=== PATIENT | female | born 1945 | race Caucasian/White ===

== ENCOUNTER 2016-07-01 15:16 | Outpatient (CLI) | payer MEDICARE ==
[2016-07-01 16:07] LABS: #Basophils 0.2 thou/uL (0.0-0.2); #Eosinphils 0.4 thou/uL (0.0-0.7); #Lymphocytes 3.6 thou/uL (1.20-3.40); #Monocytes 0.8 thou/uL (0.11-0.59); #Neutrophils 5.9 thou/uL (1.40-6.50); %Basophils 1.6 % (0.0-1.0); %Eosinophils 3.3 % (0.0-10.0); %Lymphocytes 33.2 % (21.0-51.0); %Monocytes 7.4 % (0.0-10.0); Hematocrit 36.8 % (36.0-47.0); Mean Platelet Volume 8.1 fL (7.4-10.4); Red Blood Cell (RBC) Count 4.25 mill/uL (4.20-5.40); White Blood Cell (WBC) Count 10.9 thou/uL (4.8-10.8)
[2016-07-01 16:16] LABS: Anion Gap 18 mmol/L (10-20); BUN (Urea Nitrogen) 10 mg/dL (9.8-20.1); Calc. Creatinine Clearance 0 mL/min (70-130); Calcium 9.6 mg/dL (7.8-10.44); Carbon Dioxide 25 mmol/L (23-31); Chloride 93 mmol/L (98-107); Estimated GFR-MDRD 59
== END 2016-07-01 15:17 | disposition home or self-care (01) ==
LOC: NAVSJIPCSP 15:16
PROVIDERS: ATTEND Internal Medicine
DX: D64.9 Anemia, unspecified (principal)
CPT/HCPCS: 80048; 85025

== ENCOUNTER 2017-02-11 08:38 | Outpatient (CLI) | payer MEDICARE ==
[2017-02-11 11:26] LABS: #Basophils 0.2 thou/uL (0.0-0.2); #Eosinphils 0.5 thou/uL (0.0-0.7); #Lymphocytes 3.5 thou/uL (1.20-3.40); #Monocytes 0.6 thou/uL (0.11-0.59); #Neutrophils 3.6 thou/uL (1.40-6.50); %Basophils 1.8 % (0.0-1.0); %Eosinophils 5.5 % (0.0-10.0); %Lymphocytes 41.6 % (21.0-51.0); %Monocytes 7.6 % (0.0-10.0); %Neutrophils 43.4 % (42.0-75.0); Hemoglobin 11.1 g/dL (12.0-16.0); Mean Corpuscular HGB CONC 32.2 g/dL (32.0-36.0); Mean Corpuscular Hemoglobin 27.4 pg (27.0-31.0); Mean Corpuscular Volume 85.2 fl (81.0-99.0); Mean Platelet Volume 7.4 fL (7.4-10.4); Platelet Count 266 thou/uL (130-400); RBC Distribution Width 13.6 % (11.5-14.5); Red Blood Cell (RBC) Count 4.05 mill/uL (4.20-5.40); White Blood Cell (WBC) Count 8.3 thou/uL (4.8-10.8)
[2017-02-11 11:46] LABS: ALT (SGPT) 14 U/L (8-55); AST (SGOT) 15 U/L (5-34); Alkaline Phosphatase 83 U/L (40-150); Anion Gap 13 mmol/L (10-20); BUN (Urea Nitrogen) 11 mg/dL (9.8-20.1); Bilirubin, Total 0.7 mg/dL (0.2-1.2); Calc. Creatinine Clearance 0 mL/min (70-130); Calcium 9.9 mg/dL (7.8-10.44); Carbon Dioxide 29 mmol/L (23-31); Cardiac Risk 2.9 (Less than 4.5); Chloride 97 mmol/L (98-107); Cholesterol 165 mg/dl (< 200 Desired); Estimated GFR-MDRD 66; Globulin 2.9 g/dL (2.4-3.5); Glucose 96 mg/dL (83-110); HDL Cholesterol 57 mg/dL (>60 Neg Risk); LDL Cholesterol, Calculated 83 mg/dL; Potassium 4.3 mmol/L (3.5-5.1); Protein, Total 6.9 g/dL (6.0-8.3); Sodium 135 mmol/L (136-145); Triglycerides 124 mg/dL (Less than 150)
[2017-02-11 11:50] LABS: Hemoglobin A1c 5.3 % (4.0-6.0)
[2017-02-11 17:37] LABS: Creatinine, Urine 45.41 mg/dL (47-110); Microalbumin Urine Less than 1.0 mg/dL (0.5-50.0)
== END 2017-02-11 08:39 | disposition home or self-care (01) ==
LOC: NAVSJIPCSP 08:38
PROVIDERS: ATTEND Internal Medicine
DX: E11.9 Type 2 diabetes mellitus without complications (principal); I10 Essential (primary) hypertension
CPT/HCPCS: 36415; 80053; 80061; 82043; 83036; 85025

== ENCOUNTER 2018-11-06 10:04 | Outpatient (CLI) | payer MEDICARE ==
--- NOTE | 2018-11-06 11:50 | CT ---
CT FACIAL BONES WITHOUT IV CONTRAST: HISTORY: Acute frontal sinusitis. Pain in cheeks. FINDINGS: There is prominent left-sided nasal septal deviation with a nasal septal spur. There are right conch a bullosa changes. Bilateral Twyla's cells are noted. Probable very small left frontal sinus osteo ma. No evidence for a significant nasal bone fracture. No air-fluid level within the sinuses. No s ignificant sinus mucosal disease. IMPRESSION: 1. No evidence for acute sinusitis or significant acute sinus mucosal disease. 2. Left-sided nasal septal deviation with prominent right-sided no bullosa. 3. Prominent bilateral Twyla's cells. 4. 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 POS: [facility]
== END 2018-11-06 10:05 | disposition home or self-care (01) ==
LOC: NAV CT 10:04
DX: J01.10 Acute frontal sinusitis, unspecified (principal); J34.2 Deviated nasal septum; D16.4 Benign neoplasm of bones of skull and face; J34.89 Other specified disorders of nose and nasal sinuses
CPT/HCPCS: 70486

== ENCOUNTER 2019-08-12 08:03 | Emergency (ER) | payer MEDICARE ==
--- NOTE | 2019-08-12 08:48 | RAD ---
EXAM: 3 views of the right fourth finger finger HISTORY: Finger pain COMPARISON: None FINDINGS: Small ossific fragments are seen along the dorsal aspect of the PIP joint. These could repr esent small avulsion fragments. Mild soft tissue swelling is seen. No degenerative changes are present. No radiopaque foreign body is seen. IMPRESSION: Possible small avulsion fracture fragments along the dorsal aspect of the PIP joint.
== END 2019-08-12 09:12 | disposition home or self-care (01) ==
LOC: NAV ERS 08:03
DX: S62.614A Displaced fracture of proximal phalanx of right ring finger, initial encounter for closed fracture (principal); E11.9 Type 2 diabetes mellitus without complications; E78.5 Hyperlipidemia, unspecified; M19.90 Unspecified osteoarthritis, unspecified site; Z79.84 Long term (current) use of oral hypoglycemic drugs; Z79.899 Other long term (current) drug therapy; Z79.82 Long term (current) use of aspirin; W18.09XA Striking against other object with subsequent fall, initial encounter
CPT/HCPCS: Q4049

== ENCOUNTER 2020-09-02 11:02 | Outpatient (CLI) | payer MEDICARE ==
[2020-09-02 17:41] LABS: ALT (SGPT) 29 U/L (8-55); AST (SGOT) 17 U/L (5-34); Albumin 3.8 g/dL (3.4-4.8); Alkaline Phosphatase 71 U/L (40-110); Anion Gap 14 mmol/L (10-20); BUN (Urea Nitrogen) 15 mg/dL (9.8-20.1); Bilirubin, Direct 0.3 mg/dL (0.1-0.3); Bilirubin, Total 0.5 mg/dL (0.2-1.2); Calc. Creatinine Clearance 0 mL/min (70-130); Calcium 9.3 mg/dL (7.8-10.44); Carbon Dioxide 27 mmol/L (23-31); Chloride 102 mmol/L (98-107); Globulin 2.8 g/dL (2.4-3.5); Glucose 85 mg/dL (83-110); LDH 178 U/L (125-220); Phosphorus 3.2 mg/dL (2.3-4.7); Potassium 4.5 mmol/L (3.5-5.1); Protein, Total 6.6 g/dL (5.8-8.1); Sodium 138 mmol/L (136-145); Uric Acid 4.8 mg/dL (2.6-6.0)
== END 2020-09-02 11:03 | disposition home or self-care (01) ==
LOC: NAV LAB 11:02
PROVIDERS: ATTEND Internal Medicine Hematology & Oncology
DX: M85.80 Other specified disorders of bone density and structure, unspecified site (principal); C50.511 Malignant neoplasm of lower-outer quadrant of right female breast
CPT/HCPCS: 36415; 80053; 82248; 83615; 84100; 84550

== ENCOUNTER 2021-06-01 08:33 | Emergency (ER) | payer MEDICARE ==
[2021-06-01] MEDS ORDERED: Ketorolac Tromethamine 30 MG/ML VIAL ONE (09:09)
== END 2021-06-01 10:12 | disposition home or self-care (01) ==
LOC: NAV ERS 08:33
DX: M25.451 Effusion, right hip (principal); E11.9 Type 2 diabetes mellitus without complications; E78.5 Hyperlipidemia, unspecified; I10 Essential (primary) hypertension; E78.00 Pure hypercholesterolemia, unspecified; M19.90 Unspecified osteoarthritis, unspecified site; Z85.3 Personal history of malignant neoplasm of breast; Z79.82 Long term (current) use of aspirin; Z79.899 Other long term (current) drug therapy; Z79.84 Long term (current) use of oral hypoglycemic drugs
CPT/HCPCS: 96372; J1885

== ENCOUNTER 2022-01-15 14:57 | Inpatient (IN) | payer MEDICARE ==
[2022-01-15] MEDS ORDERED: Meloxicam 7.5 MG TAB PO PRN (21:02)
[2022-01-15] MEDS ORDERED: Dextrose 50% Abboject 50 ML SYRINGE SLOW IVP PRN (21:04)
[2022-01-15] MEDS ORDERED: Sodium Chloride 0.65% Nasal 44 ML BOT EA NARE PRN (21:04)
[2022-01-15] MEDS ORDERED: HumaLOG 300 UNITS/3 ML VIAL SC PRN (21:04)
[2022-01-15] MEDS ORDERED: HYDROcodone/Acetaminophen 5/325 mg Tablet PO PRN ×2 (21:04)
[2022-01-15] MEDS ORDERED: Guaifenesin DM 100-10/5 ML UDCUP PO PRN (21:04)
[2022-01-15] MEDS ORDERED: Bisacodyl 10 MG SUPP PR PRN (21:04)
[2022-01-15] MEDS ORDERED: Benzonatate 100 MG CAP PO PRN (21:04)
[2022-01-15] MEDS ORDERED: Bisacodyl 5 MG TAB PO PRN (21:04)
[2022-01-15] MEDS ORDERED: Cepastat Lozenges 1 LOZ PO PRN (21:04)
[2022-01-15] MEDS ORDERED: Acetaminophen 650 MG Suppository PR PRN (21:04)
[2022-01-15] MEDS ORDERED: Senokot S 8.6-50 MG TAB PO PRN (21:04)
[2022-01-15] MEDS ORDERED: Calcium Carbonate 500 MG ChewTAB PO PRN ×2 (21:04)
[2022-01-15] MEDS ORDERED: Promethazine HCl 25 MG SUPP PR PRN (21:04)
[2022-01-16 06:49] LABS: Anion Gap 11 mmol/L (10-20); BUN (Urea Nitrogen) 14 mg/dL (9.8-20.1); Calc. Creatinine Clearance 85 mL/min (70-130); Calcium 8.3 mg/dL (7.8-10.44); Carbon Dioxide 20 mmol/L (23-31); Chloride 109 mmol/L (98-107); Estimated GFR 86; Glucose 105 mg/dL (83-110); Potassium 3.1 mmol/L (3.5-5.1); Sodium 137 mmol/L (136-145)
[2022-01-16 07:18] LABS: #Basophils 0.1 thou/uL (0.0-0.2); #Eosinphils 0.2 thou/uL (0.0-0.7); #Lymphocytes 1.8 thou/uL (1.20-3.40); #Monocytes 0.6 thou/uL (0.11-0.59); #Neutrophils 6.6 thou/uL (1.40-6.50); %Basophils 0.7 % (0.0-1.0); %Eosinophils 2.3 % (0.0-10.0); %Lymphocytes 19.5 % (21.0-51.0); %Monocytes 6.7 % (0.0-10.0); %Neutrophils 70.7 % (42.0-75.0); Hemoglobin 8.1 g/dL (12.0-16.0); Mean Corpuscular HGB CONC 31.4 g/dL (32.0-36.0); Mean Corpuscular Hemoglobin 31.1 pg (27.0-31.0); Mean Corpuscular Volume 99.1 fL (78.0-98.0); Mean Platelet Volume 8.4 fL (7.4-10.4); Platelet Count 199 thou/uL (130-400); RBC Distribution Width 15.1 % (11.5-14.5); Red Blood Cell (RBC) Count 2.59 mill/uL (4.20-5.40); White Blood Cell (WBC) Count 9.5 thou/uL (4.8-10.8)
[2022-01-16] MEDS: Dronedarone HCl 400 MG TAB PO SCH ×2 (09:40→21:09)
[2022-01-16] MEDS: Topiramate 25 MG TAB PO SCH ×2 (09:40→21:09)
[2022-01-16] MEDS: metFORMIN 500 MG TAB PO SCH ×2 (09:40→21:10)
[2022-01-16] MEDS: Lisinopril 20 MG TAB PO SCH (09:40)
[2022-01-16] MEDS: Calcium Carbonate 600 MG + Vit D TAB PO SCH ×2 (09:41→21:10)
[2022-01-16] MEDS: Enoxaparin Sodium 40 MG/0.4 ML SYRINGE SC SCH (09:41)
[2022-01-16] MEDS: PSYLLIUM HUSK 0.4 GM PO SCH ×2 (09:41→21:10)
[2022-01-16] MEDS: Carvedilol 25 MG TAB PO SCH ×2 (09:41→21:10)
[2022-01-16] MEDS: Multivitamin W/ Minerals 1 TAB PO SCH (09:41)
[2022-01-16] MEDS ORDERED: diphenhydrAMINE 25 MG CAP PO PRN (12:05)
[2022-01-16] MEDS: Aspirin 81 mg Enteric Coated Tablet PO SCH (21:08)
[2022-01-16] MEDS: Simvastatin 10 MG TAB PO SCH (21:10)
[2022-01-16] MEDS: Anastrozole 1 MG TAB PO SCH (21:10)
[2022-01-17 05:11] LABS: #Basophils 0.1 thou/uL (0.0-0.2); #Eosinphils 0.4 thou/uL (0.0-0.7); #Lymphocytes 2.4 thou/uL (1.20-3.40); #Monocytes 0.8 thou/uL (0.11-0.59); #Neutrophils 4.3 thou/uL (1.40-6.50); %Basophils 1.1 % (0.0-1.0); %Eosinophils 4.8 % (0.0-10.0); %Monocytes 9.5 % (0.0-10.0); %Neutrophils 54.5 % (42.0-75.0); Hemoglobin 7.6 g/dL (12.0-16.0); Mean Corpuscular HGB CONC 31.6 g/dL (32.0-36.0); Mean Corpuscular Hemoglobin 31.1 pg (27.0-31.0); Mean Corpuscular Volume 98.3 fL (78.0-98.0); Mean Platelet Volume 7.6 fL (7.4-10.4); Platelet Count 197 thou/uL (130-400); RBC Distribution Width 14.6 % (11.5-14.5); Red Blood Cell (RBC) Count 2.46 mill/uL (4.20-5.40); White Blood Cell (WBC) Count 7.9 thou/uL (4.8-10.8)
[2022-01-17 05:21] LABS: Anion Gap 11 mmol/L (10-20); BUN (Urea Nitrogen) 11 mg/dL (9.8-20.1); Calc. Creatinine Clearance 91 mL/min (70-130); Carbon Dioxide 21 mmol/L (23-31); Chloride 108 mmol/L (98-107); Estimated GFR 91; Glucose 85 mg/dL (83-110); Sodium 137 mmol/L (136-145)
[2022-01-17 05:43] LABS: Potassium 2.9 mmol/L (3.5-5.1)
[2022-01-17 06:03] VITALS: BMI 34.2
[2022-01-17] MEDS: Multivitamin W/ Minerals 1 TAB PO SCH (08:38)
[2022-01-17] MEDS: Dronedarone HCl 400 MG TAB PO SCH ×2 (08:38→20:59)
[2022-01-17] MEDS: Topiramate 25 MG TAB PO SCH ×2 (08:38→20:59)
[2022-01-17] MEDS: Carvedilol 25 MG TAB PO SCH ×2 (08:39→21:00)
[2022-01-17] MEDS: metFORMIN 500 MG TAB PO SCH ×2 (08:39→21:00)
[2022-01-17] MEDS: Calcium Carbonate 600 MG + Vit D TAB PO SCH ×2 (08:39→20:59)
[2022-01-17] MEDS: Lisinopril 20 MG TAB PO SCH (08:39)
[2022-01-17] MEDS: Enoxaparin Sodium 40 MG/0.4 ML SYRINGE SC SCH (08:40)
[2022-01-17 09:44] LABS: Magnesium 1.4 mg/dL (1.6-2.6)
[2022-01-17] MEDS: PSYLLIUM HUSK 0.4 GM PO SCH ×2 (14:20→21:00)
[2022-01-17] MEDS: Potassium Chloride 20 MEQ TAB PO SCH ×2 (14:20→20:36)
[2022-01-17] MEDS: Simvastatin 10 MG TAB PO SCH (20:59)
[2022-01-17] MEDS: Aspirin 81 mg Enteric Coated Tablet PO SCH (20:59)
[2022-01-17] MEDS: Anastrozole 1 MG TAB PO SCH (20:59)
[2022-01-17] MEDS: Magnesium Oxide 400 MG TAB PO SCH (21:00)
[2022-01-18 06:34] LABS: #Basophils 0.2 thou/uL (0.0-0.2); #Eosinphils 0.4 thou/uL (0.0-0.7); #Lymphocytes 2.4 thou/uL (1.20-3.40); #Monocytes 0.6 thou/uL (0.11-0.59); #Neutrophils 5.5 thou/uL (1.40-6.50); %Eosinophils 4.2 % (0.0-10.0); %Lymphocytes 26.1 % (21.0-51.0); %Monocytes 6.8 % (0.0-10.0); %Neutrophils 60.9 % (42.0-75.0); Hemoglobin 8.3 g/dL (12.0-16.0); Mean Corpuscular HGB CONC 31.2 g/dL (32.0-36.0); Mean Corpuscular Hemoglobin 31.1 pg (27.0-31.0); Mean Corpuscular Volume 99.6 fL (78.0-98.0); Mean Platelet Volume 7.2 fL (7.4-10.4); Platelet Count 236 thou/uL (130-400); RBC Distribution Width 15.1 % (11.5-14.5); Red Blood Cell (RBC) Count 2.67 mill/uL (4.20-5.40); White Blood Cell (WBC) Count 9.1 thou/uL (4.8-10.8)
[2022-01-18 06:41] LABS: Anion Gap 13 mmol/L (10-20); BUN (Urea Nitrogen) 8 mg/dL (9.8-20.1); Calc. Creatinine Clearance 98 mL/min (70-130); Calcium 8.5 mg/dL (7.8-10.44); Carbon Dioxide 20 mmol/L (23-31); Chloride 108 mmol/L (98-107); Estimated GFR 91; Glucose 105 mg/dL (83-110); Potassium 3.4 mmol/L (3.5-5.1); Sodium 138 mmol/L (136-145)
[2022-01-18 06:43] LABS: Magnesium 1.3 mg/dL (1.6-2.6)
[2022-01-18] MEDS: Calcium Carbonate 600 MG + Vit D TAB PO SCH ×2 (09:03→20:31)
[2022-01-18] MEDS: Dronedarone HCl 400 MG TAB PO SCH ×2 (09:03→20:31)
[2022-01-18] MEDS: Lisinopril 20 MG TAB PO SCH (09:04)
[2022-01-18] MEDS: metFORMIN 500 MG TAB PO SCH ×2 (09:04→20:31)
[2022-01-18] MEDS: Multivitamin W/ Minerals 1 TAB PO SCH (09:04)
[2022-01-18] MEDS: Carvedilol 25 MG TAB PO SCH ×2 (09:05→20:31)
[2022-01-18] MEDS: Magnesium Oxide 400 MG TAB PO SCH ×2 (09:05→20:31)
[2022-01-18] MEDS: Topiramate 25 MG TAB PO SCH ×2 (09:05→20:31)
[2022-01-18] MEDS: Enoxaparin Sodium 40 MG/0.4 ML SYRINGE SC SCH (09:05)
[2022-01-18] MEDS: PSYLLIUM HUSK 0.4 GM PO SCH ×2 (09:06→20:47)
[2022-01-18] MEDS ORDERED: Potassium Chloride 20 MEQ TAB PO SCH (13:00)
[2022-01-18] MEDS: Simvastatin 10 MG TAB PO SCH (20:30)
[2022-01-18] MEDS: Aspirin 81 mg Enteric Coated Tablet PO SCH (20:31)
[2022-01-18] MEDS: Anastrozole 1 MG TAB PO SCH (20:31)
[2022-01-19] MEDS: Acetaminophen 325 MG TAB PO PRN ×2 (03:50→15:34)
[2022-01-19 06:30] LABS: Anion Gap 12 mmol/L (10-20); BUN (Urea Nitrogen) 8 mg/dL (9.8-20.1); Calc. Creatinine Clearance 95 mL/min (70-130); Calcium 8.3 mg/dL (7.8-10.44); Carbon Dioxide 21 mmol/L (23-31); Chloride 110 mmol/L (98-107); Estimated GFR 91; Glucose 92 mg/dL (83-110); Potassium 3.5 mmol/L (3.5-5.1); Sodium 139 mmol/L (136-145)
[2022-01-19] MEDS: Enoxaparin Sodium 40 MG/0.4 ML SYRINGE SC SCH (08:02)
[2022-01-19] MEDS: Topiramate 25 MG TAB PO SCH ×2 (08:03→20:41)
[2022-01-19] MEDS: Calcium Carbonate 600 MG + Vit D TAB PO SCH ×2 (08:03→20:42)
[2022-01-19] MEDS: Multivitamin W/ Minerals 1 TAB PO SCH (08:03)
[2022-01-19] MEDS: Potassium Chloride 20 MEQ TAB PO SCH (08:03)
[2022-01-19] MEDS: Lisinopril 20 MG TAB PO SCH (08:03)
[2022-01-19] MEDS: Dronedarone HCl 400 MG TAB PO SCH ×2 (08:03→20:41)
[2022-01-19] MEDS: Carvedilol 25 MG TAB PO SCH ×2 (08:04→20:42)
[2022-01-19] MEDS: Magnesium Oxide 400 MG TAB PO SCH (08:04)
[2022-01-19] MEDS: metFORMIN 500 MG TAB PO SCH ×2 (08:04→20:41)
[2022-01-19] MEDS: PSYLLIUM HUSK 0.4 GM PO SCH ×2 (08:14→20:42)
[2022-01-19] MEDS ORDERED: Loperamide HCl 2 MG CAP PO PRN (19:21)
[2022-01-19] MEDS: Anastrozole 1 MG TAB PO SCH (20:42)
[2022-01-19] MEDS: Aspirin 81 mg Enteric Coated Tablet PO SCH (20:42)
[2022-01-19] MEDS: Simvastatin 10 MG TAB PO SCH (20:42)
[2022-01-20 06:14] LABS: Anion Gap 14 mmol/L (10-20); BUN (Urea Nitrogen) 6 mg/dL (9.8-20.1); Calc. Creatinine Clearance 92 mL/min (70-130); Calcium 8.7 mg/dL (7.8-10.44); Carbon Dioxide 18 mmol/L (23-31); Chloride 111 mmol/L (98-107); Estimated GFR 90; Glucose 86 mg/dL (83-110); Magnesium 1.4 mg/dL (1.6-2.6); Sodium 139 mmol/L (136-145)
[2022-01-20] MEDS ORDERED: Acetaminophen 650 MG Suppository PR PRN (06:50)
[2022-01-20] MEDS: Enoxaparin Sodium 40 MG/0.4 ML SYRINGE SC SCH (08:41)
[2022-01-20] MEDS: Dronedarone HCl 400 MG TAB PO SCH ×2 (08:41→20:19)
[2022-01-20] MEDS: Carvedilol 25 MG TAB PO SCH ×2 (08:45→20:19)
[2022-01-20] MEDS: Topiramate 25 MG TAB PO SCH ×2 (08:45→20:18)
[2022-01-20] MEDS: Multivitamin W/ Minerals 1 TAB PO SCH (08:45)
[2022-01-20] MEDS: Calcium Carbonate 600 MG + Vit D TAB PO SCH ×2 (08:45→20:19)
[2022-01-20] MEDS: Potassium Chloride 20 MEQ TAB PO SCH (08:45)
[2022-01-20] MEDS: Lisinopril 20 MG TAB PO SCH (08:45)
[2022-01-20] MEDS: metFORMIN 500 MG TAB PO SCH ×2 (08:46→20:19)
[2022-01-20] MEDS: PSYLLIUM HUSK 0.4 GM PO SCH (08:47)
[2022-01-20] MEDS: Simvastatin 10 MG TAB PO SCH (20:18)
[2022-01-20] MEDS: Aspirin 81 mg Enteric Coated Tablet PO SCH (20:19)
[2022-01-20] MEDS: Anastrozole 1 MG TAB PO SCH (20:20)
[2022-01-20] MEDS: Metamucil PACK PO SCH (20:26)
[2022-01-21 06:09] LABS: Anion Gap 12 mmol/L (10-20); BUN (Urea Nitrogen) 6 mg/dL (9.8-20.1); Calc. Creatinine Clearance 94 mL/min (70-130); Calcium 8.6 mg/dL (7.8-10.44); Carbon Dioxide 19 mmol/L (23-31); Chloride 110 mmol/L (98-107); Estimated GFR 90; Glucose 90 mg/dL (83-110); Potassium 3.8 mmol/L (3.5-5.1); Sodium 137 mmol/L (136-145)
[2022-01-21] MEDS: Acetaminophen 325 MG TAB PO PRN ×2 (07:17→14:44)
[2022-01-21] MEDS ORDERED: HYDROcodone/Acetaminophen 5/325 mg Tablet PO SCH (08:15)
[2022-01-21] MEDS: metFORMIN 500 MG TAB PO SCH ×2 (09:13→21:10)
[2022-01-21] MEDS: Potassium Chloride 20 MEQ TAB PO SCH (09:13)
[2022-01-21] MEDS: Dronedarone HCl 400 MG TAB PO SCH ×2 (09:13→21:10)
[2022-01-21] MEDS: Carvedilol 25 MG TAB PO SCH ×2 (09:13→21:10)
[2022-01-21] MEDS: Multivitamin W/ Minerals 1 TAB PO SCH (09:13)
[2022-01-21] MEDS: Enoxaparin Sodium 40 MG/0.4 ML SYRINGE SC SCH (09:14)
[2022-01-21] MEDS: Metamucil PACK PO SCH ×2 (09:14→21:12)
[2022-01-21] MEDS: Lisinopril 20 MG TAB PO SCH (09:14)
[2022-01-21] MEDS: Calcium Carbonate 600 MG + Vit D TAB PO SCH ×2 (09:14→21:10)
[2022-01-21] MEDS: Topiramate 25 MG TAB PO SCH ×2 (09:14→21:16)
[2022-01-21] MEDS ORDERED: HYDROcodone/Acetaminophen 5/325 mg Tablet PO PRN (16:13)
[2022-01-21] MEDS ORDERED: Acetaminophen 325 MG TAB PO PRN (16:14)
[2022-01-21] MEDS ORDERED: Acetaminophen 650 MG Suppository PR PRN (16:14)
[2022-01-21] MEDS: Simvastatin 10 MG TAB PO SCH (21:10)
[2022-01-21] MEDS: Anastrozole 1 MG TAB PO SCH (21:10)
[2022-01-21] MEDS: Aspirin 81 mg Enteric Coated Tablet PO SCH (21:11)
[2022-01-22 06:18] LABS: Anion Gap 12 mmol/L (10-20); BUN (Urea Nitrogen) 5 mg/dL (9.8-20.1); Calc. Creatinine Clearance 87 mL/min (70-130); Carbon Dioxide 22 mmol/L (23-31); Chloride 109 mmol/L (98-107); Estimated GFR 84; Glucose 88 mg/dL (83-110); Potassium 3.9 mmol/L (3.5-5.1); Sodium 139 mmol/L (136-145)
[2022-01-22] MEDS: Enoxaparin Sodium 40 MG/0.4 ML SYRINGE SC SCH (07:53)
[2022-01-22] MEDS: Dronedarone HCl 400 MG TAB PO SCH ×2 (07:54→20:59)
[2022-01-22] MEDS: Lisinopril 20 MG TAB PO SCH (07:55)
[2022-01-22] MEDS: Carvedilol 25 MG TAB PO SCH ×2 (07:55→21:01)
[2022-01-22] MEDS: Potassium Chloride 20 MEQ TAB PO SCH (07:56)
[2022-01-22] MEDS: Calcium Carbonate 600 MG + Vit D TAB PO SCH ×2 (07:56→21:00)
[2022-01-22] MEDS: HYDROcodone/Acetaminophen 5/325 mg Tablet PO PRN ×2 (07:59→14:57)
[2022-01-22] MEDS: metFORMIN 500 MG TAB PO SCH ×2 (08:00→21:00)
[2022-01-22] MEDS: Multivitamin W/ Minerals 1 TAB PO SCH (08:00)
[2022-01-22] MEDS: Metamucil PACK PO SCH ×2 (08:00→20:58)
[2022-01-22] MEDS: Topiramate 25 MG TAB PO SCH ×2 (10:34→21:01)
[2022-01-22] MEDS: Simvastatin 10 MG TAB PO SCH (21:00)
[2022-01-22] MEDS: Anastrozole 1 MG TAB PO SCH (21:01)
[2022-01-22] MEDS: Aspirin 81 mg Enteric Coated Tablet PO SCH (21:01)
[2022-01-23 06:14] LABS: #Basophils 0.1 thou/uL (0.0-0.2); #Eosinphils 0.4 thou/uL (0.0-0.7); #Lymphocytes 2.4 thou/uL (1.20-3.40); #Monocytes 0.7 thou/uL (0.11-0.59); #Neutrophils 5.8 thou/uL (1.40-6.50); %Basophils 1.5 % (0.0-1.0); %Eosinophils 4.5 % (0.0-10.0); %Lymphocytes 25.7 % (21.0-51.0); %Monocytes 6.9 % (0.0-10.0); %Neutrophils 61.5 % (42.0-75.0); Hemoglobin 8.1 g/dL (12.0-16.0); Mean Corpuscular HGB CONC 30.5 g/dL (32.0-36.0); Mean Corpuscular Hemoglobin 30.7 pg (27.0-31.0); Platelet Count 341 thou/uL (130-400); RBC Distribution Width 15.8 % (11.5-14.5); Red Blood Cell (RBC) Count 2.65 mill/uL (4.20-5.40); White Blood Cell (WBC) Count 9.4 thou/uL (4.8-10.8)
[2022-01-23 06:17] LABS: Anion Gap 12 mmol/L (10-20); BUN (Urea Nitrogen) 6 mg/dL (9.8-20.1); Calc. Creatinine Clearance 95 mL/min (70-130); Calcium 8.7 mg/dL (7.8-10.44); Carbon Dioxide 21 mmol/L (23-31); Chloride 110 mmol/L (98-107); Estimated GFR 91; Glucose 89 mg/dL (83-110); Potassium 3.9 mmol/L (3.5-5.1); Sodium 139 mmol/L (136-145)
[2022-01-23 08:15] VITALS: TEMP 98.3
[2022-01-23] MEDS: Calcium Carbonate 600 MG + Vit D TAB PO SCH (08:42)
[2022-01-23] MEDS: Potassium Chloride 20 MEQ TAB PO SCH (08:42)
[2022-01-23] MEDS: metFORMIN 500 MG TAB PO SCH (08:42)
[2022-01-23] MEDS: Multivitamin W/ Minerals 1 TAB PO SCH (08:43)
[2022-01-23] MEDS: Carvedilol 25 MG TAB PO SCH (08:44)
[2022-01-23] MEDS: Metamucil PACK PO SCH (08:44)
[2022-01-23] MEDS: Lisinopril 20 MG TAB PO SCH (08:44)
[2022-01-23] MEDS: Dronedarone HCl 400 MG TAB PO SCH (08:44)
[2022-01-23] MEDS: Enoxaparin Sodium 40 MG/0.4 ML SYRINGE SC SCH (08:44)
[2022-01-23] MEDS: Topiramate 25 MG TAB PO SCH (08:44)
[2022-01-23 15:11] VITALS: BP 145/61
== END 2022-01-23 13:30 | disposition home health service (06) | DRG 560 ==
LOC: NAV ACUTE 16:59
PROVIDERS: ADMIT Family Medicine; ATTEND Family Medicine
DX: Z47.1 Aftercare following joint replacement surgery (principal); I48.3 Typical atrial flutter; E87.1 Hypo-osmolality and hyponatremia; C50.911 Malignant neoplasm of unspecified site of right female breast; Z66 Do not resuscitate; E11.22 Type 2 diabetes mellitus with diabetic chronic kidney disease; E78.5 Hyperlipidemia, unspecified; K21.9 Gastro-esophageal reflux disease without esophagitis; G43.909 Migraine, unspecified, not intractable, without status migrainosus; M19.90 Unspecified osteoarthritis, unspecified site; D64.89 Other specified anemias; I25.10 Atherosclerotic heart disease of native coronary artery without angina pectoris; E78.2 Mixed hyperlipidemia; N18.31 Chronic kidney disease, stage 3a; R33.9 Retention of urine, unspecified; E83.42 Hypomagnesemia; E87.6 Hypokalemia; Z20.822 Contact with and (suspected) exposure to COVID-19; R53.81 Other malaise; I12.9 Hypertensive chronic kidney disease with stage 1 through stage 4 chronic kidney disease, or unspecified chronic kidney disease; Z96.651 Presence of right artificial knee joint; Z88.8 Allergy status to other drugs, medicaments and biological substances; Z88.1 Allergy status to other antibiotic agents; Z91.09 Other allergy status, other than to drugs and biological substances; Z79.899 Other long term (current) drug therapy; Z79.82 Long term (current) use of aspirin; Z79.84 Long term (current) use of oral hypoglycemic drugs; Z98.51 Tubal ligation status; Z90.89 Acquired absence of other organs; Z90.49 Acquired absence of other specified parts of digestive tract; Z98.890 Other specified postprocedural states; Z95.1 Presence of aortocoronary bypass graft; Z95.2 Presence of prosthetic heart valve; Z91.041 Radiographic dye allergy status; Z91.048 Other nonmedicinal substance allergy status; Z85.3 Personal history of malignant neoplasm of breast
CPT/HCPCS: 36415; 36416; 80048; 83735; 84132; 85025; J1650; J1815; U0003; U0005

== ENCOUNTER 2022-03-11 10:05 | Outpatient (CLI) | payer MEDICARE ==
[2022-03-11 12:10] LABS: Albumin 3.6 g/dL (3.4-4.8); Anion Gap 15 mmol/L (10-20); BUN (Urea Nitrogen) 17 mg/dL (9.8-20.1); Calc. Creatinine Clearance 0 mL/min (70-130); Calcium 9.5 mg/dL (7.8-10.44); Carbon Dioxide 24 mmol/L (23-31); Chloride 109 mmol/L (98-107); Estimated GFR 72; Glucose 97 mg/dL (83-110); Magnesium 1.9 mg/dL (1.6-2.6); Phosphorus 4.7 mg/dL (2.3-4.7); Potassium 3.8 mmol/L (3.5-5.1); Sodium 144 mmol/L (136-145)
[2022-03-11 17:47] LABS: Creatinine, Urine 182.27 mg/dL (47-110)
[2022-03-11 18:14] LABS: Follow-up Chemistry Comp? YES; Follow-up Result - Chemistry REPORT FAXED; Follow-up Result - Urinalysis REPORT FAXED; Follow-up UA Comp? YES
== END 2022-03-11 10:06 | disposition home or self-care (01) ==
LOC: NAV LAB 10:05
PROVIDERS: ATTEND Internal Medicine Nephrology
DX: I12.9 Hypertensive chronic kidney disease with stage 1 through stage 4 chronic kidney disease, or unspecified chronic kidney disease (principal); N18.30 Chronic kidney disease, stage 3 unspecified
CPT/HCPCS: 36415; 80048; 82040; 82570; 83735; 83970; 84100; 84156

== ENCOUNTER 2022-07-18 09:02 | Emergency (ER) | payer MEDICARE ==
[2022-07-18 09:38] LABS: #Basophils 0.1 thou/uL (0.0-0.2); #Eosinphils 0.4 thou/uL (0.0-0.7); #Lymphocytes 2.5 thou/uL (1.20-3.40); #Monocytes 0.5 thou/uL (0.11-0.59); #Neutrophils 4.6 thou/uL (1.40-6.50); %Basophils 1.6 % (0.0-1.0); %Eosinophils 4.6 % (0.0-10.0); %Lymphocytes 31.2 % (21.0-51.0); %Monocytes 5.8 % (0.0-10.0); %Neutrophils 56.8 % (42.0-75.0); Hemoglobin 10.8 g/dL (12.0-16.0); Mean Corpuscular Hemoglobin 30.4 pg (27.0-31.0); Mean Corpuscular Volume 94.9 fl (78.0-98.0); Mean Platelet Volume 7.5 fL (7.4-10.4); Platelet Count 201 10x3/uL (130-400); RBC Distribution Width 14.5 % (11.5-14.5); Red Blood Cell (RBC) Count 3.57 mill/uL (4.20-5.40); White Blood Cell (WBC) Count 8.1 10x3/uL (4.8-10.8)
[2022-07-18 09:59] LABS: ALT (SGPT) 15 U/L (8-55); AST (SGOT) 18 U/L (5-34); Albumin 3.8 g/dL (3.4-4.8); Alkaline Phosphatase 51 U/L (40-110); Anion Gap 14 mmol/L (10-20); BUN (Urea Nitrogen) 16 mg/dL (9.8-20.1); Bilirubin, Total 0.6 mg/dL (0.2-1.2); Calc. Creatinine Clearance 0 mL/min (70-130); Calcium 10.1 mg/dL (7.8-10.44); Carbon Dioxide 27 mmol/L (23-31); Chloride 104 mmol/L (98-107); Estimated GFR 52; Globulin 2.8 g/dL (2.4-3.5); Glucose 105 mg/dL (83-110); Lipase 23 U/L (8-78); Magnesium 1.7 mg/dL (1.6-2.6); Protein, Total 6.6 g/dL (5.8-8.1); Sodium 141 mmol/L (136-145)
== END 2022-07-18 12:20 | disposition home or self-care (01) ==
LOC: NAV ERS 09:02
DX: R07.89 Other chest pain (principal); E11.9 Type 2 diabetes mellitus without complications; E78.00 Pure hypercholesterolemia, unspecified; I10 Essential (primary) hypertension; I25.10 Atherosclerotic heart disease of native coronary artery without angina pectoris; Z79.899 Other long term (current) drug therapy; Z79.82 Long term (current) use of aspirin; Z79.84 Long term (current) use of oral hypoglycemic drugs
CPT/HCPCS: 36415; 71045; 80053; 83690; 83735; 84484; 85025; 93005; 94760

== ENCOUNTER 2023-09-09 09:25 | Emergency (ER) | payer MEDICARE ==
[2023-09-09] MEDS ORDERED: Acetaminophen 325 MG TAB ONE (10:05)
[2023-09-09] MEDS ORDERED: Aspirin Chewable 81 MG TAB ONE (10:05)
[2023-09-09] MEDS ORDERED: Nitroglycerin 2% Ointment 1 INCH/1 GM Packet ONE (10:06)
[2023-09-09 10:26] LABS: #Basophils 0.1 thou/uL (0.0-0.2); #Eosinphils 0.3 thou/uL (0.0-0.7); #Lymphocytes 2.5 thou/uL (1.20-3.40); #Monocytes 0.6 thou/uL (0.11-0.59); #Neutrophils 3.9 thou/uL (1.40-6.50); %Basophils 1.6 % (0.0-1.0); %Eosinophils 3.5 % (0.0-10.0); %Monocytes 8.1 % (0.0-10.0); %Neutrophils 52.9 % (42.0-75.0); Hematocrit 37.5 % (36.0-47.0); Hemoglobin 12.4 g/dL (12.0-16.0); Mean Corpuscular Hemoglobin 30.2 pg (27.0-31.0); Mean Corpuscular Volume 91.5 fl (78.0-98.0); Mean Platelet Volume 7.7 fL (7.4-10.4); Platelet Count 192 10x3/uL (130-400); RBC Distribution Width 12.8 % (11.5-14.5); Red Blood Cell (RBC) Count 4.09 mill/uL (4.20-5.40); White Blood Cell (WBC) Count 7.4 10x3/uL (4.8-10.8)
[2023-09-09 10:46] LABS: Troponin I Less than 0.010 ng/mL (< 0.028)
[2023-09-09 10:49] LABS: ALT (SGPT) 12 U/L (8-55); AST (SGOT) 12 U/L (5-34); Albumin 3.7 g/dL (3.4-4.8); Alkaline Phosphatase 62 U/L (40-110); Anion Gap 11 mmol/L (10-20); BUN (Urea Nitrogen) 16 mg/dL (9.8-20.1); Bilirubin, Total 0.6 mg/dL (0.2-1.2); Calc. Creatinine Clearance 0 mL/min (70-130); Carbon Dioxide 28 mmol/L (23-31); Chloride 104 mmol/L (98-107); Estimated GFR 58; Glucose 99 mg/dL (83-110); Lipase 26 U/L (8-78); Potassium 3.8 mmol/L (3.5-5.1); Protein, Total 6.7 g/dL (5.8-8.1); Sodium 139 mmol/L (136-145)
== END 2023-09-09 13:37 | disposition short-term general hospital (02) ==
LOC: NAV ERS 09:25
DX: R07.9 Chest pain, unspecified (principal); E11.9 Type 2 diabetes mellitus without complications; E78.00 Pure hypercholesterolemia, unspecified; I10 Essential (primary) hypertension; Z79.84 Long term (current) use of oral hypoglycemic drugs; Z79.899 Other long term (current) drug therapy
CPT/HCPCS: 36415; 71045; 80053; 83690; 84484; 85025; 93005

== ENCOUNTER 2023-12-07 08:49 | Emergency (ER) | payer MEDICARE ==
[2023-12-07] MEDS ORDERED: Acetaminophen 500 MG TAB ONE (09:34)
== END 2023-12-07 09:50 | disposition home or self-care (01) ==
LOC: NAV ERS 08:49
DX: S93.504A Unspecified sprain of right lesser toe(s), initial encounter (principal); E11.9 Type 2 diabetes mellitus without complications; E78.00 Pure hypercholesterolemia, unspecified; I10 Essential (primary) hypertension; I25.10 Atherosclerotic heart disease of native coronary artery without angina pectoris; W17.89XA Other fall from one level to another, initial encounter; Z79.84 Long term (current) use of oral hypoglycemic drugs; Z79.899 Other long term (current) drug therapy

== ENCOUNTER 2024-05-25 11:24 | Emergency (ER) | payer OTHER | END 2024-05-25 13:57 | disposition home or self-care (01) | LOC: NAV ERS 11:24 | DX: S30.0XXA Contusion of lower back and pelvis, initial encounter (principal); R29.6 Repeated falls; E11.9 Type 2 diabetes mellitus without complications; I10 Essential (primary) hypertension; E78.00 Pure hypercholesterolemia, unspecified; Z79.82 Long term (current) use of aspirin; Z79.84 Long term (current) use of oral hypoglycemic drugs; Z79.899 Other long term (current) drug therapy; W18.11XA Fall from or off toilet without subsequent striking against object, initial encounter; Y93.89 Activity, other specified | CPT/HCPCS: 72131; 74176 ==

== ENCOUNTER 2024-10-18 11:05 | Emergency (ER) | payer OTHER ==
[2024-10-18] MEDS ORDERED: Acetaminophen 325 MG TAB ONE (11:31)
== END 2024-10-18 12:25 | disposition home or self-care (01) ==
LOC: NAV ERS 11:05
DX: S92.351A Displaced fracture of fifth metatarsal bone, right foot, initial encounter for closed fracture (principal); S92.341A Displaced fracture of fourth metatarsal bone, right foot, initial encounter for closed fracture; E11.9 Type 2 diabetes mellitus without complications; I10 Essential (primary) hypertension; I25.10 Atherosclerotic heart disease of native coronary artery without angina pectoris; E78.00 Pure hypercholesterolemia, unspecified; Z79.82 Long term (current) use of aspirin; Z79.84 Long term (current) use of oral hypoglycemic drugs; Z79.899 Other long term (current) drug therapy; W01.0XXA Fall on same level from slipping, tripping and stumbling without subsequent striking against object, initial encounter
CPT/HCPCS: 99283